=== PATIENT | female | born 1960 | race Caucasian/White ===

== ENCOUNTER → 2016-07-23 | Outpatient (CLI) | payer BC, OTHER ==
[~2016-07-23] MED LIST: ATOR20TA58 PO; BUPR150T11 PO; HYDR25TA9 PO; LEVO50TA5 PO; VALA500T PO
--- NOTE | 2016-07-23 10:31 | RAD ---
Left wrist, 3 views, 07/23/2016: History: Follow-up wrist fracture The current images are obtained through radiopaque cast compromising bony detail. Comparison is made to a study from 07/03/2016. The fracture of the radial styloid process is not clearly delineated due to the overlying cast artifacts. The fracture remains nondisplaced. No new abnormality is detected. IMPRESSION: No significant change since 07/03/2016.
== END | disposition home or self-care (01) ==
LOC: DXRADRC 07:42
PROVIDERS: ATTEND Physician Assistant Medical
DX: M25.532 Pain in left wrist (principal)
CPT/HCPCS: 73110

== ENCOUNTER → 2016-08-07 | Outpatient (CLI) | payer BC, OTHER ==
--- NOTE | 2016-08-07 14:46 | RAD ---
Left wrist, 2 views, 08/07/2016: History: Follow-up fracture Comparison is made to a study from 07/23/2016. The images are obtained for radiopaque cast compromising bony detail. The fracture of the styloid process of the distal radius is not clearly defined due to the artifacts. It appears to be unchanged in position. No new abnormality is seen. IMPRESSION: No significant change since 07/23/2016.
== END | disposition home or self-care (01) ==
LOC: DXRADRC 10:16
PROVIDERS: ATTEND Physician Assistant Medical
DX: S62.102D Fracture of unspecified carpal bone, left wrist, subsequent encounter for fracture with routine healing (principal); X58.XXXD Exposure to other specified factors, subsequent encounter
CPT/HCPCS: 73100